=== PATIENT | female | born 1975 | race African-American/Black ===

== ENCOUNTER 2019-01-04 04:53 | Emergency (ER) | payer OTHER ==
[~2019-01-04] VITALS: Ht 172.7 cm; Wt 120.2 kg
[2019-01-04 07:52] VITALS: BP 136/90
== END 2019-01-04 08:03 | disposition home or self-care (01) ==
LOC: ER 04:55
DX: M25.552 Pain in left hip (principal); M25.532 Pain in left wrist; W01.0XXA Fall on same level from slipping, tripping and stumbling without subsequent striking against object, initial encounter; Y93.89 Activity, other specified; Y92.89 Other specified places as the place of occurrence of the external cause; Y99.0 Civilian activity done for income or pay
CPT/HCPCS: 73110; 73502